=== PATIENT | male | born 1985 | race Caucasian/White ===

== ENCOUNTER 2018-12-03 21:16 | Emergency (ER) | payer SELFPAY ==
--- NOTE | 2018-12-03 22:01 | EKG REPORT ---
SEVERITY:- BORDERLINE ECG - SINUS RHYTHM BORDERLINE PROLONGED QT INTERVAL : Confirmed by: Janel Leon 03-Dec-2018 22:01:26
[2018-12-03 22:30] LABS: ABSOLUTE EOSINOPHILS # (AUTO) 0.1 10^3/uL (0.0-0.6); ABSOLUTE MONOCYTES (AUTO) 0.6 10^3/uL (0.1-1.4); BASOPHILS % (AUTO) 0.6 % (0-2); EOSINOPHILS % (AUTO) 1.2 % (0-6); HEMOGLOBIN 16.2 g/dL (13.5-17.0); LYMPHOCYTES % (AUTO) 26.3 % (13-45); MEAN CORPUSCULAR HEMOGLOBIN 32.6 pg (27.0-33.4); MEAN CORPUSCULAR HGB CONC 35.3 g/dL (32.0-36.0); MEAN CORPUSCULAR VOLUME 92 fl (80-97); MONOCYTES % (AUTO) 7.7 % (3-13); PLATELET COUNT 196 10^3/uL (150-450); RED BLOOD COUNT 4.99 10^6/uL (4.35-5.55); SEGMENTED NEUTROPHILS % (AUTO) 64.2 % (42-78); TOTAL CELLS COUNTED % (AUTO) 100 %; WHITE BLOOD COUNT 7.7 10^3/uL (4.0-10.5)
[2018-12-03 22:41] LABS: ALANINE AMINOTRANSFERASE 33 U/L (21-72); ALKALINE PHOSPHATASE 85 U/L (38-126); ANION GAP 11 (5-19); ASPARTATE AMINO TRANSFERASE 26 U/L (17-59); BILIRUBIN,DIRECT 0.2 mg/dL (0.0-0.4); BILIRUBIN,TOTAL 0.6 mg/dL (0.2-1.3); BLOOD UREA NITROGEN 15 mg/dL (7-20); CARBON DIOXIDE 28 mmol/L (22-30); CHLORIDE 104 mmol/L (98-107); GLUCOSE 106 mg/dL (75-110); POTASSIUM 4.8 mmol/L (3.6-5.0); SODIUM 142.5 mmol/L (137-145); TOTAL PROTEIN 8.1 g/dL (6.3-8.2)
[2018-12-04 01:00] VITALS: BP 141/80
--- NOTE | 2018-12-04 02:00 | ER Document Report ---
Entered by SANTOS JHAVERI SCRIBE 12/03/18 [id number] Acting as scribe for:CAROLIN STEVENSON DO ED General - General Chief Complaint: Palpitations Stated Complaint: DIZZYNESS/WEAKNESS Time Seen by Provider: 12/03/18 21:58 Primary Care Provider: SELENE GARCIA MD [ACTIVE STAFF] - Follow up as needed Mode of Arrival: Ambulatory Information source: Patient Notes: 33-year-old male who presents to the emergency department today with complaints of dizziness, blurry vision, elevated heart rate with palpitations, "slight" abdominal pain, and bilateral foot numbness. He describes his foot numbness as being unable to feel his feet unless something or someone is touching them. Denies any difficulty walking. Patient states his ears became "really hot" after taking his Effexor at 2000 and the rest of his symptoms began shortly after. Patient states he has been taking Effexor for over one year and has never had any symptoms like this when taking the Effexor in the past. Patient states he does have a history of panic attacks and is prescribed alprazolam. Patient states his symptoms today are "similar" to previous anxiety attacks although the symptoms today seem more severe than past panic attacks. Patient denies any hand or finger numbness, chest pain, shortness of breath, nausea, or vomiting. TRAVEL OUTSIDE OF THE [place] IN LAST 30 DAYS: No - Related Data Allergies/Adverse Reactions: No Known Allergies Allergy (Unverified 12/03/18 21:17) Past Medical History - General Information source: Patient - Social History Smoking Status: Never Smoker Cigarette use (# per day): No Chew tobacco use (# tins/day): No Frequency of alcohol use: Occasional Drug Abuse: Marijuana Lives with: Family Family History: Reviewed & Not Pertinent Patient has suicidal ideation: No Patient has homicidal ideation: No Past Surgical History: Reports: Hx Tonsillectomy Review of Systems - Review of Systems Constitutional: No symptoms reported EENT: No symptoms reported Cardiovascular: See HPI, Palpitations, Heart racing, Dizziness. denies: Chest pain Respiratory: denies: Short of breath Gastrointestinal: See HPI, Abdominal pain - "slight". denies: Nausea, Vomiting Genitourinary: No symptoms reported Male Genitourinary: No symptoms reported Musculoskeletal: No symptoms reported Skin: No symptoms reported Hematologic/Lymphatic: No symptoms reported Neurological/Psychological: See HPI, Numbness - bilateral feet -: Yes All other systems reviewed and negative Physical Exam - Vital signs Vitals: Temp Pulse Resp BP Pulse Ox 98.7 F 111 H 17 153/91 H 98 12/03/18 21:32 12/03/18 21:32 12/03/18 21:32 12/03/18 21:32 12/03/18 21:32 - Notes Notes: PHYSICAL EXAM GENERAL: Alert, interacts well. No acute distress. HEAD: Normocephalic, atraumatic. EYES: Pupils equal, round, and reactive to light. Extraocular movements intact. ENT: Oral mucosa moist, tongue midline. NECK: Full range of motion. Supple. Trachea midline. LUNGS: Clear to auscultation bilaterally, no wheezes, rales, or rhonchi. No respiratory distress. HEART: Regular rate and rhythm. No murmurs, gallops, or rubs. ABDOMEN: Soft, non-tender. Non-distended. Bowel sounds present in all 4 quadrants. No guarding, rigidity, or rebound. EXTREMITIES: Moves all 4 extremities spontaneously. No edema, radial and dorsa lis pedis pulses 2/4 bilaterally. No cyanosis. NEUROLOGICAL: Alert and oriented x3. Normal speech. Biceps and patellar DTRs 2+ bilaterally. Sensation intact. PSYCH: Normal affect, normal mood. SKIN: Warm, dry, normal turgor. No rashes or lesions noted. Course - Re-evaluation Re-evalutation: 12/04/18 00:54 CBC unremarkable, CMP unremarkable, troponin negative, EKG nonischemic. No PACs seen here however there were multiple PACs noted on the monitor during his period of observation. The numbness patient's feet is not reproducible. It also does not follow any distribution that would be consistent with spinal injury. At present patient is safe to be discharged to home. Suspect the palpitations he is feeling or his PACs. Very low suspicion for acute coronary syndrome or pulmonary embolism. Patient is oxygenating well on room air. Patient is also feeling better after resting in the bed on a monitor. Discharged home. - Vital Signs Vital signs: Temp Pulse Resp BP Pulse Ox 98.7 F 111 H 12 141/80 H 97 12/03/18 21:32 12/03/18 21:32 12/04/18 00:02 12/04/18 00:02 12/04/18 00:02 - Laboratory Result Diagrams: 12/03/18 22:10 12/03/18 22:10 - EKG Interpretation by Me Additional EKG results interpreted by me: 12/04/18 00:55 EKG shows sinus rhythm at a rate of 99, normal axis, normal intervals, no ST segment elevations or depressions, no T wave inversions per my interpretation. Discharge - Discharge Clinical Impression: Palpitations, Paresthesias Condition: Stable Disposition: HOME, SELF-CARE Additional Instructions: Palpitations (Irregular/Rapid Heartrate) Irregular or rapid heartbeat is called "palpitation." To diagnose the cause of palpitation, we have to "catch it in the act" with an EKG. Sinus Tachycardia: This is a rapid (but NORMAL) rhythm that can be due to fever, pain, anxiety, lack of sleep, over-exertion, or drugs. Cold medications, caffeine, and diet pills are particularly likely to cause tachycardia. Usually, all that's required is rest, reassurance, and avoiding caffeine, alcohol, fuad rand, and unnecessary medicines. Premature Beats: Extra beats occur more commonly after caffeine, nicotine, alcohol, cold pills, diet pills. Emotional stress or fatigue also provoke them. Extra beats are only dangerous when heart disease is present. They usually need no treatment. If they're frequent, or if evidence of heart disease develops, medication can be given to suppress them. We found premature atrial contractions on your EKG. These do not usually require any treatment. Contact the physician at once if you develop persistent lightheadedness, shortness of breath, chest pain, or swelling of the ankles. Referrals: SELENE GARCIA MD [ACTIVE STAFF] - Follow up as needed Scribe Attestation: 12/04/18 02:00 I personally performed the services described in the documentation, reviewed and edited the documentation which was dictated to the scribe in my presence, and it accurately records my words and actions. I personally performed the services described in the documentation, reviewed and edited the documentation which was dictated to the scribe in my presence, and it accurately records my words and actions.
== END 2018-12-04 01:07 | disposition home or self-care (01) ==
LOC: ER 21:16
DX: R00.2 Palpitations (principal); R20.0 Anesthesia of skin; R42 Dizziness and giddiness; R53.1 Weakness; H53.8 Other visual disturbances
CPT/HCPCS: 36415; 80053; 84484; 85025; 93005; 93010; 99285